=== PATIENT | female | born 1935 | race Caucasian/White ===

== ENCOUNTER 2020-06-25 16:09 | Inpatient (IN) | payer BC ==
[~2020-06-25] VITALS: Ht 165.1 cm; Wt 68.0 kg
[2020-06-25 16:40] LABS: BASOPHILS % (AUTO) 0.3 % (0.0-5.0); EOSINOPHILS % (AUTO) 3.7 % (0.0-8.0); HEMATOCRIT 44.7 % (36-48); LYMPHOCYTES % (AUTO) 15.5 % (21.0-51.0); MEAN CORPUSCULAR HEMOGLOBIN 31.6 pg (27.0-33.0); MEAN CORPUSCULAR HGB CONC 33.3 g/dL (32.0-36.0); MEAN CORPUSCULAR VOLUME 94.7 fL (79-99); MONOCYTES % (AUTO) 7.5 % (3.0-13.0); NEUTROPHILS % (AUTO) 72.8 % (40.0-77.0); PLATELET COUNT (AUTO) 299 K/uL (130-400); RED BLOOD CELL COUNT(AUTO) 4.72 MIL/uL (4.00-5.50); WHITE BLOOD COUNT (AUTO) 9.2 K/uL (4.8-10.8)
[2020-06-25 16:52] LABS: CREATININE 1.1 mg/dL (0.5-1.5); POTASSIUM 4.2 mmol/L (3.5-5.1)
[2020-06-25 16:56] LABS: ALBUMIN 3.7 g/dL (3.5-5.0); BILIRUBIN,TOTAL 0.8 mg/dL (0.2-1.0); TOTAL PROTEIN, SERUM 6.9 g/dL (6.0-8.3)
[2020-06-25] MEDS ORDERED: METOPROLOL TARTRATE 1 MG/ML 5ML VIAL IV ONE ×3 (17:10→18:51)
[2020-06-25 17:13] LABS: INR 0.87 (0.85-1.15); PARTIAL THROMBOPLASTIN TIME 25.6 SEC (26.3-35.5); PROTHROMBIN TIME 9.4 SEC (9.6-11.6)
[2020-06-25] MEDS ORDERED: ONDANSETRON HCL 4 MG/2 ML VIAL IV PRN (21:30)
[2020-06-25] MEDS ORDERED: ACETAMINOPHEN 325 MG TAB PO PRN ×2 (21:30)
[2020-06-25] MEDS ORDERED: HYDRALAZINE HCL 20 MG/ML VIAL IV PRN (21:30)
[2020-06-25] MEDS ORDERED: DILTIAZEM 125MG+100 ML NS 125 ML IV SCH (21:30)
[2020-06-25] MEDS ORDERED: LACTULOSE 20 GM/30 ML UDCUP PO PRN (21:30)
[2020-06-26] VITALS (7 sets, daily range): BP systolic 104–159; BP diastolic 45–69
[2020-06-26] MEDS ORDERED: LEVO50TA4 PO (02:14)
[2020-06-26] MEDS ORDERED: CALC600T15 PO (02:14)
[2020-06-26] MEDS ORDERED: AMLO5TAB5 PO (02:14)
[2020-06-26] MEDS ORDERED: AEC81 PO (02:14)
[2020-06-26] MEDS ORDERED: ROSU10TA22 PO (02:14)
[2020-06-26] MEDS ORDERED: LABE200T5 PO (02:14)
[2020-06-26] MEDS ORDERED: LOSA50TA64 PO (02:14)
[2020-06-26 07:11] LABS: BASOPHILS % (AUTO) 0.6 % (0.0-5.0); EOSINOPHILS % (AUTO) 4.2 % (0.0-8.0); HEMATOCRIT 41.5 % (36-48); LYMPHOCYTES % (AUTO) 18.4 % (21.0-51.0); MEAN CORPUSCULAR HEMOGLOBIN 30.9 pg (27.0-33.0); MEAN CORPUSCULAR HGB CONC 32.8 g/dL (32.0-36.0); MEAN CORPUSCULAR VOLUME 94.3 fL (79-99); MONOCYTES % (AUTO) 8.3 % (3.0-13.0); NEUTROPHILS % (AUTO) 68.2 % (40.0-77.0); PLATELET COUNT (AUTO) 241 K/uL (130-400); WHITE BLOOD COUNT (AUTO) 6.9 K/uL (4.8-10.8)
[2020-06-26 07:33] LABS: CREATININE 0.8 mg/dL (0.5-1.5); POTASSIUM 4.1 mmol/L (3.5-5.1)
[2020-06-26] MEDS: FAMOTIDINE 20MG TAB 20 MG TAB PO SCH (08:36)
[2020-06-26] MEDS ORDERED: ENOXAPARIN SODIUM 40 MG/0.4 ML SYRINGE SQ SCH (09:00)
--- NOTE | 2020-06-26 11:39 | NUR ---
DR MCKINNEY WAS PAGE REGARDING CARDIOLOGY CONSULT.
--- NOTE | 2020-06-26 15:30 | NUR ---
DR. MCKINNEY WAS CALL AND NOTIFY ABOUT CONSULT AND ORDERED TO ADMINISTER CARDIZEM 180 MG PO NOW AND THEN CONTINUE CARDIZEM 180 MG PO DAILY.
[2020-06-26] MEDS ORDERED: DILTIAZEM HCL 180 MG CAP.SR.24H PO SCH (15:45)
--- NOTE | 2020-06-26 16:38 | NUR ---
INITIAL: Met with pt this afternoon to discuss dcp. PT mentions that she lives alone. She is independent w ambulation and aDLs. She does not own any DME or receive services. Pt drives where needed. Pt states feels safe and comfortable to return home alone. CM to continue to follow and wait for MD recommendations. Addendum: 06/27/20 at 1640 by LORI JOSEPH CM Amended: Links added.
[2020-06-26] MEDS: APIXABAN 5 MG TABLET PO SCH (19:55)
[2020-06-27 03:43] VITALS: BP 105/58
[2020-06-27 05:12] LABS: HEMATOCRIT 38.1 % (36-48); MEAN CORPUSCULAR HEMOGLOBIN 31.1 pg (27.0-33.0); MEAN CORPUSCULAR HGB CONC 32.8 g/dL (32.0-36.0); MEAN CORPUSCULAR VOLUME 94.8 fL (79-99); RED BLOOD CELL COUNT(AUTO) 4.02 MIL/uL (4.00-5.50); RED CELL DISTRIBUTION WIDTH 12.9 % (11.0-15.5); WHITE BLOOD COUNT (AUTO) 6.2 K/uL (4.8-10.8)
[2020-06-27 05:59] LABS: CREATININE 0.9 mg/dL (0.5-1.5); POTASSIUM 4.5 mmol/L (3.5-5.1); THYROID STIMULATING HORMONE 3.05 uIU/mL (0.36-3.74)
[2020-06-27 07:00] VITALS: BP 135/72
[2020-06-27 07:56] VITALS: BP 126/57
[2020-06-27] MEDS: FAMOTIDINE 20MG TAB 20 MG TAB PO SCH (08:33)
[2020-06-27] MEDS: APIXABAN 5 MG TABLET PO SCH (08:33)
[2020-06-27] MEDS ORDERED: DILTIAZEM HCL 180 MG CAP.SR.24H PO SCH (09:00)
[2020-06-27 11:00] VITALS: BP 142/74
[2020-06-27] MEDS ORDERED: APIX5TAB PO (14:12)
[2020-06-27] MEDS ORDERED: DILT180C63 PO (14:12)
== END 2020-06-27 15:50 | disposition home or self-care (01) | DRG 310 ==
LOC: EDH 16:09 → EDHIP 21:28 → 4BH 06-26 01:19
PROVIDERS: ADMIT Family Medicine; ATTEND Family Medicine
DX: I48.91 Unspecified atrial fibrillation (principal); I11.0 Hypertensive heart disease with heart failure; I50.9 Heart failure, unspecified; E03.9 Hypothyroidism, unspecified; E78.5 Hyperlipidemia, unspecified; I25.2 Old myocardial infarction; Z90.710 Acquired absence of both cervix and uterus; Z90.49 Acquired absence of other specified parts of digestive tract; Z87.01 Personal history of pneumonia (recurrent); Z79.899 Other long term (current) drug therapy
CPT/HCPCS: 36415; 71045; 80048; 80053; 82550; 83735; 83880; 84443; 84484; 85025; 85027; 85610; 85730; 93005; 93306; 93356; 99291; G0378; J1650; J3490